=== PATIENT | male | born 1945 | race Caucasian/White ===

== ENCOUNTER → 2019-02-05 08:58 | Outpatient (CLI) | payer MEDICARE, OTHER, SELFPAY ==
--- NOTE | 2019-02-05 | DI.CT.S_ITS ---
PROCEDURE: CT SINUS SCREEN WO CON INDICATIONS: Chronic sinusitis, unspecified TECHNIQUE: Noncontrast 3.0 mm axial images acquired from the frontal sinuses to the mid-sella, with coronal and sagittal reformats. For radiation dose reduction, the following was used: automated exposure control, adjustment of mA and/or kV according to patient size. COMPARISON: None. FINDINGS: Image quality: Excellent. Moderate mucosal thickening noted in the maxillary sinuses bilaterally. Mild mucosal thickening noted in the ethmoid air cells bilaterally and in the frontal sinuses bilaterally. Small frothy air fluid levels noted in the maxillary sinuses bilaterally. The osteomeatal units are partially opacified bilaterally. No osseous thickening, osseous remodeling or osseous erosive changes. Nasal septum is deviated to the left. No afia bullosa or paradoxical turbinates. 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 The anterior ethmoid artery notches are protected bilaterally. Type I cribriform plate is noted. No frontal recess cells identified. The sphenoid pneumatization pattern is sellar complete. Atherosclerotic calcifications noted in the cavernous segments of the internal carotid arteries bilaterally. IMPRESSION: 1. Acute bilateral maxillary sinusitis superimposed upon chronic bilateral maxillary sinusitis. 2. Mild chronic bilateral ethmoid air cell and bilateral frontal sinusitis. 3. Variant paranasal sinus anatomy as described above Dictated by: María Elena Bauer MD, PhD on 02/05/2019 at 10:39 Approved by: María Elena Bauer MD, PhD on 02/05/2019 at 10:43
== END ==
PROVIDERS: PCP Family Medicine; Visit Provider Family Medicine
DX: J32.8 Other chronic sinusitis (principal); J01.00 Acute maxillary sinusitis, unspecified; I65.23 Occlusion and stenosis of bilateral carotid arteries; J34.2 Deviated nasal septum
CPT/HCPCS: 70486

== ENCOUNTER → 2021-07-28 09:46 | Outpatient (CLI) | payer MEDICARE, OTHER, SELFPAY ==
[2021-07-28 21:12] LABS: COVID19 - ORCAS (NP or Nasal) POSITIVE (Negative)
== END ==
PROVIDERS: PCP Family Medicine; Visit Provider Family Medicine
DX: U07.1 COVID-19 (principal)
CPT/HCPCS: U0003

== ENCOUNTER → 2022-07-06 07:23 | Outpatient (CLI) | payer MEDICARE, OTHER, SELFPAY ==
[2022-07-06 20:30] LABS: COVID-19 CEPHEID PCR (VTM/NP) Negative (Negative)
== END ==
PROVIDERS: PCP Family Medicine; Visit Provider Family Medicine
DX: Z20.822 Contact with and (suspected) exposure to COVID-19 (principal)
CPT/HCPCS: C9803; U0003; U0005

== ENCOUNTER → 2024-11-12 15:31 | Outpatient (CLI) | payer MEDICARE, OTHER, SELFPAY ==
--- NOTE | 2024-11-12 15:34 | DI.MRI.S_ITS ---
PROCEDURE: MR HEAD/BRAIN WO/W CON INDICATIONS: TRANSIENT VISUAL LOSS,LEFT EYE TECHNIQUE: Noncontrast axial T1 spin echo, axial T2 fast spin echo, sagittal and axial FLAIR, coronal T2 fast spin echo, axial gradient echo, axial diffusion and ADC through the brain. After the administration of contrast, axial and coronal and sagittal 3D VIBE or T1 spin echo with fat saturation through the brain. COMPARISON: None. FINDINGS: Image quality: Excellent. CSF Spaces: Basal cisterns are patent. No extra-axial fluid collections. Ventricles are normal in size and shape. Brain: No midline shift. No intracranial bleeds or masses. There is mild, diffuse cerebral volume loss. There are minimal periventricular and subcortical white matter chronic microvascular ischemic changes. No abnormal intracranial enhancement. The brainstem appears normal. Diffusion-weighted images demonstrate no acute infarct. No chronic ischemic insults. Normal intravascular flow voids are present. Dural sinuses demonstrate normal postcontrast enhancement. Skull and face: Calvarial marrow is normal in signal. Orbits appear normal. Sinuses: Sinuses and mastoids appear clear. IMPRESSION: No acute intracranial disease process. No acute or chronic infarcts. No abnormal intracranial mass or suspicious postcontrast enhancement. Dictated by: María Elena Bauer MD, PhD on 11/13/2024 at 9:11 Approved by: María Elena Bauer MD, PhD on 11/13/2024 at 9:22
== END ==
LOC: MRI 15:31
PROVIDERS: PCP Family Medicine; Referring Provider Family Medicine; Visit Provider Family Medicine
DX: H53.122 Transient visual loss, left eye (principal)
CPT/HCPCS: 70553; A9579

== ENCOUNTER → 2024-11-23 15:15 | Outpatient (CLI) | payer MEDICARE, OTHER, SELFPAY ==
--- NOTE | 2024-11-23 15:16 | DI.US.S_ITS ---
PROCEDURE: US CAROTID DOPPLER BI INDICATIONS: TRANSIENT VISUAL LOSS,LEFT EYE TECHNIQUE: Color and pulse Doppler interrogation was performed of both carotid systems, with image documentation and velocity measurements. COMPARISON: [facility], MR, MR HEAD/BRAIN WO/W CON, 11/12/2024, 16:25. FINDINGS: Stenosis calculations are based on SRU (Society of Radiologists in Ultras[employer]) criteria. The flow velocities and the arterial waveforms are normal within both carotid arterial systems. Atherosclerotic plaque is seen on both sides, left worse than right. The estimated degree of internal carotid artery stenosis is less than 50%. Antegrade flow is confirmed within both vertebral arteries. IMPRESSION: No hemodynamically significant stenosis is seen. Atherosclerotic plaque is noted bilaterally. Dictated by: Silvano Crabtree M.D. on 11/23/2024 at 15:44 Approved by: Silvano Crabtree M.D. on 11/23/2024 at 15:45
== END ==
PROVIDERS: PCP Family Medicine; Referring Provider Family Medicine; Visit Provider Family Medicine
DX: H53.122 Transient visual loss, left eye (principal); I65.23 Occlusion and stenosis of bilateral carotid arteries
CPT/HCPCS: 93880

== ENCOUNTER → 2025-09-09 13:41 | Outpatient (CLI) | payer MEDICARE, OTHER, SELFPAY ==
--- NOTE | 2025-09-09 13:43 | DI.ECHO.S_ITS ---
[facility] : : [id number] : : [place] : : [id number] : : Phone: [phone] Echocardiogram Report + + :Name: KEILA SARMIENTO Study Date: 09/09/2025 Height: 72 in : :[facility] ReadingLocation: Weight: 170 lb : : Gender: Male BSA: 2.0 m2 : :: 1945 Age: 80 yrs BP: 146/86 mmHg: :Reason For Study: NONRHEUMATIC MITRAL VALVE INSUFFICIENCY : :Ordering Physician: NICOLÁS, : :VINICIUS Kwon Performed By: Barrington Sawyer : :Referring: VINICIUS KIM : + + Interpretation Summary Sinus bradycardia with HR 47-50 bpm. Normal LV size and wall thickness; EF is 55-60%. Mild-moderate RV enlargement; otherwise normal chamber sizes. Thickened anterior mitral valve leaflet with moderate eccentric posterolaterally directed mitral regurgitation. Otherwise no significant valvular abnormalities. Mildly dilated aortic root measuring 4 cm in diameter. No prior echo available for comparison. Procedure: A two-dimensional transthoracic echocardiogram with color flow and Doppler was performed. The study quality was technically good. There is no prior echocardiogram noted for this patient. The patient was in normal sinus rhythm during the exam. Left Ventricle: The left ventricle is normal in size. There is normal left ventricular wall thickness. There is no ventricular septal defect visualized. The ejection fraction is estimated to be 55-60%. There are no focal wall motion abnormalities. Diastolic parameters suggest probable normal left ventricular diastolic function and normal filling pressures. Right Ventricle: The right ventricle is mild to moderately dilated. The right ventricular systolic function is normal. Atria: The left atrial size is normal. Right atrial size is normal. There is no Doppler evidence for an interatrial shunt. Mitral Valve: The mitral valve leaflets appear mildly thickened. There is mild mitral valve prolapse. There is moderate mitral regurgitation. The mitral regurgitant jet is eccentrically directed. Aortic Valve: The aortic valve is trileaflet. The aortic valve opens well. There is trace aortic regurgitation. Tricuspid Valve: The tricuspid valve leaflets are thin and pliable. There is trace tricuspid regurgitation. Pulmonic Valve: The pulmonic valve is not well seen, but is grossly normal. There is mild pulmonic regurgitation. Great Vessels: The aortic root is mildly dilated. The dimensions of the ascending aorta are normal. The pulmonary artery is normal size. The IVC is dilated (diameter is greater than 2.1 cm) and it collapses less than 50% with a sniff. This suggests a high right atrial pressure of 15 mm Hg. Pericardium/ Pleura There is no pericardial effusion. There is no pleural effusion. MMode/2D Measurements & Calculations LVIDd: 4.6 cm LVOT diam: 1.9 cm LVIDs: 3.1 cm Ao root diam: 3.9 cm FS: 33.7 % asc Aorta Diam: 3.6 cm EPSS: 0.42 cm IVSd: 0.98 cm LVPWd: 0.69 cm LV torres. diameter/BSA (cm/m^2): 2.3 LV sys. diameter/BSA (cm/m^2): 1.5 LA A2 area: 20.8 cm2 RA long axis: 4.1 cm LA A4 area: 19.0 cm2 RA area: 11.0 cm2 LA length (vol): 5.7 cm RA vol: 24.7 ml LA vol: 59.2 ml RA : 12.4 ml/m2 LA vol index: 29.8 ml/m2 IVC diam: 2.4 cm RVD1 (basal): 4.5 cm TAPSE: 2.7 cm Doppler Measurements & Calculations Ao V2 max: 99.8 cm/sec LVOT Max Jese: 90.6 cm/sec Ao V2 mean: 73.4 cm/sec LV V1 max P.3 mmHg Ao max P.0 mmHg LV V1 VTI: 20.5 cm Ao mean P.4 mmHg KHAI(I,D): 2.5 cm2 Ao V2 VTI: 24.0 cm KHAI(V,D): 2.7 cm2 sev ratio: 0.85 KHAI indexed to BSA (cm^2/m^2): 1.3 MV E max jese: 97.1 cm/sec TR max jese: 235.3 cm/sec MV A max jese: 60.9 cm/sec TR max P.1 mmHg MV E/A: 1.6 PA V2 max: 120.2 cm/sec Med Peak E' Jese: 5.8 cm/sec PA V2 mean: 71.2 cm/sec E/E' med: 16.8 PA mean P.4 mmHg Lat Peak E' Jese: 8.5 cm/sec PA pr(Accel): 53.3 mmHg E/E' lat: 11.5 E/e' average: 14.1 MV dec time: 0.18 sec SV(LVOT): 61.0 ml Electronically signed by: Cara xavier Reading Physician:09/10/2025 03:06 AM
== END ==
LOC: ECHO 13:42
PROVIDERS: PCP Family Medicine; Referring Provider Family Medicine; Visit Provider Family Medicine
DX: I34.0 Nonrheumatic mitral (valve) insufficiency (principal); I37.1 Nonrheumatic pulmonary valve insufficiency; I77.89 Other specified disorders of arteries and arterioles
CPT/HCPCS: 93306